=== PATIENT | male | born 1995 | race Caucasian/White ===

== ENCOUNTER → 2021-01-24 16:56 | Outpatient (BNVA) | payer OTHER, SELFPAY | PROVIDERS: Family Provider Family Medicine; PCP Nurse Practitioner; Visit Provider Nurse Practitioner Family | DX: Z20.822 Contact with and (suspected) exposure to COVID-19 (principal) | CPT/HCPCS: 87635 ==

== ENCOUNTER → 2023-01-25 09:51 | Outpatient (BNVA) | payer MEDICAID, SELFPAY | PROVIDERS: Family Provider Family Medicine; PCP Nurse Practitioner; Visit Provider Nurse Practitioner | DX: Z13.6 Encounter for screening for cardiovascular disorders (principal) | CPT/HCPCS: 80053; 80061; 85025 ==

== ENCOUNTER → 2023-01-30 11:27 | Outpatient (BNVA) | payer MEDICAID, SELFPAY | PROVIDERS: Family Provider Family Medicine; PCP Nurse Practitioner | DX: R07.9 Chest pain, unspecified (principal) | CPT/HCPCS: 93005 ==

== ENCOUNTER → 2023-02-14 08:01 | Outpatient (BNVA) | payer MEDICAID, SELFPAY | PROVIDERS: PCP Nurse Practitioner; Visit Provider Nurse Practitioner | DX: R19.7 Diarrhea, unspecified (principal) | CPT/HCPCS: 87506 ==

== ENCOUNTER 2023-03-24 20:51 | Emergency (ER) | payer MEDICAID, SELFPAY ==
[2023-03-24 20:59] VITALS: BP 119/79; PULSE 96; RESP 18; TEMP 37.4; O2SAT 96; BMI 33.0
[2023-03-24 23:19] LABS: Basophils % 0.2 %; Eosinophils # 0.2 10^3/uL (0.0-0.8); Eosinophils % 1.5 %; Hematocrit 44.8 % (37-53); Lymphocytes # 3.4 10^3/uL (0.8-4.8); Lymphocytes % 27.4 %; Mean Corpuscular Hemoglobin 28.5 pg (27-33); Mean Corpuscular Volume 86.3 fl (82-101); Mean Platelet Volume 10.3 fL (7.4-10.4); Monocytes # 0.5 10^3/uL (0.2-0.9); Neutrophils # 8.25 10^3/uL (1.8-7.7); Neutrophils % 66.5 %; Nucleated Red Blood Cells % 0 %; Platelet Count 365 10^3/cmm (157-399); Red Blood Count 5.19 10^6/uL (3.85-5.65); Red Cell Distribution Width 12.4 % (12.1-15.1)
--- NOTE | 2023-03-24 23:23 | ED_ITS ---
HPI - Headache General: Chief Complaint: Headache Stated Complaint: migraine Time Seen by Provider: 03/24/23 22:36 History of Present Illness: 27-year-old male patient comes in with complaints of headache today starting this morning. Patient reports last week on Monday he was ill with fever nausea vomiting diarrhea. Patient seemed to improve on Monday but then today woke up with a bad headache. Patient is alert and oriented. Patient appears nontoxic. Patient appears in mild to moderate pain. Associated symptoms: Reports fever(s) and nausea; Deny chest pain or vomiting Review of Systems General: Reports: 10 or more systems reviewed and unremarkable except in HPI and below Const: Reports: fever(s) Eyes: Denies: change in vision ENMT: Denies: throat pain Card: Denies: chest pain Resp: Denies: dyspnea GI: Reports: nausea; Denies: vomiting, diarrhea or constipation Neuro: Reports: headache(s) PFSH ED PFSH: Medical History Contact dermatitis and eczema due to plant Surgical History History of ear surgery several tube placement and TM repair History of elbow surgery age 6 Family History Grandmother Diabetes Hyperlipidemia Hypertension Grandfather Diabetes Hyperlipidemia Hypertension Social History (System 02/21/23 @ 11:41 by Torrie Lowery) Smoking and tobacco status: former smoker (smokeless ) Second hand smoke exposure: No Smoking risk assessment/counseling performed?: Yes Alcohol intake: never Desire information about alcohol rehabilitation?: No Counseling given: No Substance/Drug Use: never Desire information about substance/drug rehabilitation?: No Counseling given: No Adopted: No Caregiver/support person: No Lives independently: Yes Household members: spouse Housing: House Marital status: Highest education level completed: High School Graduate service: No Current occupational status: employed Do you think of yourself as: Straight/Heterosexual Current gender identity: Male Physical Exam Const: COMMON NORMALS: alert HENMT: COMMON NORMALS: normocephalic HEAD & SCALP: normocephalic THROAT: posterior oropharynx normal Neck/C-Spine: COMMON NORMALS: full ROM and no meningeal signs Chest: COMMONS NORMALS: normal inspection of the chest Resp: COMMON NORMALS: normal respiratory effort and clear to auscultation bilaterally AUSCULTATION: clear to auscultation bilaterally Cardio: COMMON NORMALS: regular rate and regular rhythm RATE: regular rate RHYTHM: regular rhythm Extremity: COMMON NORMALS: normal to inspection Neuro: SENSORIUM/ORIENTATION: Yes alert MENINGEAL SIGNS: Yes no meningeal signs Skin: COMMON NORMALS: turgor normal GENERAL SKIN EXAM: turgor normal Course Vital Signs: Vital signs: Vital Signs Temperature 99.3 F 03/24/23 20:59 Pulse Rate 96 03/24/23 20:59 Respiratory Rate 18 03/24/23 20:59 Blood Pressure 119/79 03/24/23 20:59 Pulse Oximetry 96 03/24/23 20:59 Oxygen Delivery Me thod Room Air 03/24/23 20:59 MDM - Headache Medical Decision Making Patient comes in today with complaints of headache. Patient was ill last weekend and felt like he was getting better today he then started having a bad headache with some nausea and a couple episodes of emesis. On exam no meningeal signs are noted. Pupils are equal and reactive. Vital signs are normal. Patient moves neck without any difficulties. Differential diagnosis includes meningitis, intracranial mass, intracranial hemorrhage, encephalitis, dehydration, viral syndrome, migraine. CT of the head noted some paranasal sinus disease, postoperative findings of the right mastoid, and a benign cisterna cyst. CBC and CMP were notable for a 12,000 white count, and a creatinine 1.3. Tick panel was sent to lab. Believe the patient probably has some dehydration from his illness which may has exacerbated the headache syndrome. Go ahead and treated for dehydration with 1500 mL fluid and headache with ketorolac, Reglan, dexamethasone and diphenhydramine. Patient did have improvement after the first dose of Reglan and Toradol alone but then patient stated that he felt better but still Had a headache in which for repeat dosing. At that time patient was then given 10 of Reglan, 15 of Toradol, 12-1/2 of Benadryl, and dexamethasone as no sign of severe illness was noted in the labs. Patient reported understanding of care plan will follow-up with primary care for results of tick panel. At this time there is no significant signs of a tickborne illness and the labs or exam, and I feel patient probably should just wait for antibiotics until a positive test results. Lab Data 03/24/23 23:00 09 23:[address] 03/24/23 23:35 IMPRESSION: 1. No evidence of acute intracranial hemorrhage, mass effect, or midline shift. 2. Postoperative findings in the right mastoid. 3. Paranasal sinus disease. Laboratory Results WBC 12.40 10^3/uL (3.29-11.43) H 03/24/23 23:00 RBC 5.19 10^6/uL (3.85-5.65) 03/24/23 23:00 Hgb 14.80 g/dL (11.27-16.99) 03/24/23 23:00 Hct 44.8 % (37-53) 03/24/23 23:00 MCV 86.3 fl (82-101) 03/24/23 23:00 MCH 28.5 pg (27-33) 03/24/23 23: MCHC 33.0 g/dL (30-55) 03/24/23 23:00 RDW 12.4 % (12.1-15.1) 03/24/23 23:00 Plt Count 365 10^3/cmm (157-399) 03/24/23 23:00 MPV 10.3 fL (7.4-10.4) 03/24/23 23:00 Neut % (Auto) 66.5 % 03/24/23 23:00 Lymph % (Auto) 27.4 % 03/24/23 23:00 Jessamine % (Auto) 4.0 % 03/24/23 23:00 Eos % (Auto) 1.5 % 03/24/23 23:00 Baso % (Auto) 0.2 % 03/24/23 23:00 Neut # (Auto) 8.25 10^3/uL (1.8-7.7) H 03/24/23 23:00 Lymph # (Auto) 3.4 10^3/uL (0.8-4.8) 03/24/23 23:00 Jessamine # (Auto) 0.5 10^3/uL (0.2-0.9) 03/24/23 23:00 Eos # (Auto) 0.2 10^3/uL (0.0-0.8) 03/24/23 23:00 Baso # (Auto) 0.0 10^3/uL (0.0-0.1) 03/24/23 23:00 Nucleated RBC % (auto) 0 % 03/24/23 23:00 Nucleated RBCs # 0.0 /100WBC 03/24/23 23:00 ESR 3 mm/hr (0-10) 03/24/23 23:00 Sodium 138 mmol/L (136-145) 03/24/23 23:00 Potassium 4.3 mmol/L (3.5-5.1) 03/24/23 23:00 Chloride 99 mmol/L (98-107) 03/24/23 23:00 Carbon Dioxide 28 mmol/L (22-29) 03/24/23 23:00 Anion Gap 15.3 (5-19) 03/24/23 23:00 BUN 16 mg/dL (6-20) 03/24/23 23:00 Creatinine 1.3 mg/dL (0.7-1.2) H 03/24/23 23:00 GFR Calculation 66.2 mL/min (90-130) L 03/24/23 23:00 Glucose 117 mg/dL (65-115) H 03/24/23 23:00 Calculated Osmolality 288 mOsm/kg (285-295) 03/24/23 23:00 Calcium 9.3 mg/dL (8.5-10.5) 03/24/23 23:00 Total Bilirubin 0.4 mg/dL (0.15-1.2) 03/24/23 23:00 AST 38 U/L (0-40) 03/24/23 23:00 ALT 129 U/L (0-41) H 03/24/23 23:00 Alkaline Phosphatase 83 U/L (40-130) 03/24/23 23:00 C-Reactive Protein 6.3 mg/L (0.0-4.9) H 03/24/23 23:00 Total Protein 7.6 g/dL (6.6-8.7) 03/24/23 23:00 Albumin 4.8 g/dL (3.5-5.2) 03/24/23 23:00 Globulin 2.8 g/dL (1.3-4.6) 03/24/23 23:00 Discharge Plan Discharge Patient Disposition: Home Clinical Impression: Dehydration, Viral syndrome Headache Qualifiers: Headache type: unspecified Headache chronicity pattern: acute headache Intractability: not intractable Qualified Code(s): R51.9 - Headache, unspecified Condition: Stable Prescriptions: No Action venlafaxine [Effexor XR] 37.5 mg capsule,extended release 24hr 37.5 mg PO DAILY Qty: 30 5RF azithromycin [Zithromax] 500 mg tablet 1,000 mg PO .one time Qty: 2 0RF Discharge Orders: Discharge ED (Routine); Ordered 03/25/23 Ordered By: Umesh Alejandra Referrals: Yu Boyce, REPRODUCTION SPECIALIST-C [Primary Care Provider] - Discharge Diet: Usual diet Discharge Activity: Increase activity as tolerated Patient Instructions: Viral Syndrome (ED) Activity Restrictions/Additional Instructions: Drink plenty of water and fluids. Use acetaminophen and/or ibuprofen as needed for pain and fever. Activity as tolerated. Follow-up with primary care in 2 to 3 days for recheck. Return to ED for worsening symptoms such as severe chest pain, shortness of breath, nausea and vomiting, or new concerns. Coding Level of Care Code ED [employer] Operations [employer] for [facility]
[2023-03-24 23:31] LABS: Erythrocyte Sedimentation Rate 3 mm/hr (0-10)
--- NOTE | 2023-03-24 23:35 | CTR_ITS ---
PROCEDURE INFORMATION: Exam: CT Head Without Contrast Exam date and time: 03/24/2023 11:44 PM Age: 27 years old Clinical indication: Pain; Headache; Patient HX: C/O CARCAMO; Additional info: New onset headache TECHNIQUE: Imaging protocol: Computed tomography of the head without contrast. Radiation optimization: All CT scans at this facility use at least one of these dose optimization techniques: automated exposure control; mA and/or kV adjustment per patient size (includes targeted exams where dose is matched to clinical indication); or iterative reconstruction. REPORTING DATA: Count of CT and Cardiac NM exams in prior 12 months: This patient has received 0 known CTs and 0 known cardiac nuclear medicine studies in the 12 months prior to the current study. COMPARISON: No relevant prior studies available. RADIATION DOSE METRICS: Total DLP (mGy-cm): 1014.28 FINDINGS: Brain: Small CSF space posterior to the cerebellum may represent a poncho cisterna magna or retro cerebellar arachnoid cyst. Cerebral ventricles: Mild non-specific prominence of the ventricles. The ventricles are otherwise normal in shape and morphology. Paranasal sinuses: There is mild paranasal sinus disease space. No fluid levels. Mastoid air cells: The patient is status post canal wall up partial right mastoidectomy. The mastoidectomy bed appears clear. Small amount of cerumen in the right external auditory canal.. Bones/joints: Unremarkable. No acute fracture. Soft tissues: Unremarkable. CT/CT head wo con* [id number] IMPRESSION: 1. No evidence of acute intracranial hemorrhage, mass effect, or midline shift. 2. Postoperative findings in the right mastoid. 3. Paranasal sinus disease.
[2023-03-24 23:43] LABS: Alanine Aminotransferase 129 U/L (0-41); Albumin Level 4.8 g/dL (3.5-5.2); Alkaline Phosphatase 83 U/L (40-130); Anion Gap 15.3 (5-19); Aspartate Amino Transferase 38 U/L (0-40); Blood Urea Nitrogen 16 mg/dL (6-20); C Reactive Protein 6.3 mg/L (0.0-4.9); Calcium 9.3 mg/dL (8.5-10.5); Carbon Dioxide 28 mmol/L (22-29); Chloride 99 mmol/L (98-107); Globulin 2.8 g/dL (1.3-4.6); Glomerular Filtration Rate 66.2 mL/min (90-130); Glucose 117 mg/dL (65-115); Osmolality Calculated 288 mOsm/kg (285-295); Potassium 4.3 mmol/L (3.5-5.1); Sodium 138 mmol/L (136-145); Total Bilirubin 0.4 mg/dL (0.15-1.2); Total Protein 7.6 g/dL (6.6-8.7)
[2023-03-24] MEDS: sodium chloride 0.9% 500 ML 999 ML IV (23:52)
[2023-03-24] MEDS: ketorolac 30 mg/mL INJ 15 MG IVP (23:53)
[2023-03-24] MEDS: metoclopramide 5 mg/mL SDV 2 mL 10 MG IVP (23:55)
[2023-03-25] MEDS: sodium chloride 0.9% 1,000 ML 999 ML IV (00:27)
[2023-03-25] MEDS: diphenhydrAMINE 50 mg/mL SDV 1mL 12.5 MG IVP (00:58)
[2023-03-25] MEDS: dexamethasone 10 mg/mL INJ IVP (01:00)
[2023-03-25] MEDS: ketorolac 30 mg/mL INJ 15 MG IVP (01:03)
[2023-03-25] MEDS: metoclopramide 5 mg/mL SDV 2 mL 10 MG IVP (01:05)
[2023-03-25 01:51] VITALS: BP 127/68; PULSE 92; RESP 16; O2SAT 93
[2023-03-27 15:25] LABS: Lyme AB Screen <0.90 index
[2023-03-29 15:49] LABS: RMSF IGG NOT DETECTED; RMSF IGM NOT DETECTED
[2023-03-29 16:55] LABS: E. Chaffeensis AB IGG <1:64; E. Chaffeensis AB IGM <1:20
== END 2023-03-25 01:58 | disposition home or self-care (01) ==
PROVIDERS: Emergency Provider Nurse Practitioner Family; PCP Nurse Practitioner
DX: R51.9 Headache, unspecified (principal); B34.9 Viral infection, unspecified; E86.0 Dehydration; Z87.891 Personal history of nicotine dependence
CPT/HCPCS: 36415; 70450; 80053; 85025; 85651; 86140; 86618; 86666; 86757; 96361; 96374; 96375; 96376; 99285; J1100; J1200; J1885; J2765; J7030; J7040

== ENCOUNTER 2023-12-18 13:21 | Outpatient (CLI) | payer OTHER, SELFPAY ==
[2023-12-18 14:26] LABS: Alanine Aminotransferase 39 U/L (0-41); Alkaline Phosphatase 73 U/L (40-130); Anion Gap 14.1 (5-19); Aspartate Amino Transferase 25 U/L (0-40); Blood Urea Nitrogen 18 mg/dL (6-20); Calcium 9.4 mg/dL (8.5-10.5); Carbon Dioxide 28 mmol/L (22-29); Chloride 101 mmol/L (98-107); Globulin 2.8 g/dL (1.3-4.6); Glomerular Filtration Rate 79.7 mL/min (90-130); Glucose 85 mg/dL (65-115); Osmolality Calculated 289 mOsm/kg (285-295); Potassium 4.1 mmol/L (3.5-5.1); Sodium 139 mmol/L (136-145); Thyroid Stimulating Hormone 3.22 uIU/mL (0.27-4.20); Total Bilirubin 0.2 mg/dL (0.15-1.2); Total Protein 7.8 g/dL (6.6-8.7); Vitamin B12 673 pg/mL (232-1245)
== END 2023-12-18 13:22 | disposition home or self-care (01) ==
LOC: LAB 13:23
PROVIDERS: PCP Nurse Practitioner; Visit Provider Nurse Practitioner
DX: F41.8 Other specified anxiety disorders (principal)
CPT/HCPCS: 36415; 80053; 82607; 84443

== ENCOUNTER → 2024-08-25 18:55 | Outpatient (BNVA) | payer OTHER, SELFPAY | PROVIDERS: PCP Nurse Practitioner | DX: R50.9 Fever, unspecified (principal) | CPT/HCPCS: 87400 ==

== ENCOUNTER 2025-01-01 12:06 | Outpatient (CLI) | payer OTHER, SELFPAY | END 2025-01-01 12:07 | disposition home or self-care (01) | PROVIDERS: PCP Nurse Practitioner; Visit Provider Nurse Practitioner | DX: R19.7 Diarrhea, unspecified (principal) | CPT/HCPCS: 87045; 87077; 87177; 87209; 87427; 87449 ==